=== PATIENT | female | born 1950 | race Caucasian/White ===

== ENCOUNTER 2016-08-08 05:36 | Inpatient (IN) ==
[2016-08-08] MEDS ORDERED: FAMOTIDINE 20 MG TABLET PO ONE (06:00)
[2016-08-08] MEDS ORDERED: LORazepam 1 MG TABLET PO ONE ×2 (06:00→06:29)
[2016-08-08] MEDS ORDERED: ceFAZolin 1,000 MG VIAL ONE (06:13)
[2016-08-08] MEDS ORDERED: VANCOMYCIN 1,000 MG VIAL ONE (06:13)
[2016-08-08] MEDS ORDERED: SODIUM CHLORIDE 0.9% 100 ML IV ONE ×2 (06:13→09:20)
--- NOTE | 2016-08-08 06:46 | EKG Report ---
Stationary ECG Study [facility] Test Date: 08/08/2016 6:46:43 AM Pat Name: AURA IRAHETA Department: Room: 612 Gender: F [place] Bone Roller: PATRICIA : 1950 Requested by: Ghulam Villasenor Order Number: [id number] Reading MD: THONY BLACKWELL Intervals [place] Rate: 96 P: 48 AR: 148 QRS: -7 QRSD: 85 T: 48 QT: 369 QTc: 422 Interpretive Statements SINUS RHYTHM LOW QRS VOLTAGE IN PRECORDIAL LEADS POSSIBLE ANTERIOR MYOCARDIAL INFARCTION, PROBABLY OLD Electronically Signed On 08-08-16 06:49:13 CDT by THONY BLACKWELL [email or web address]
[2016-08-08] MEDS: LACTATED RINGERS 1,000 ML IV SCH ×5 (07:00→20:21)
--- NOTE | 2016-08-08 07:24 | History and Physical Update ---
History and Physical Update - History and Physical H&P was reviewed, the patient examined and there: are no changes in the patients condition since last H&P was completed.
[2016-08-08] MEDS ORDERED: ROCURONIUM 100 MG/10 ML VIAL IV ONE (08:00)
[2016-08-08] MEDS ORDERED: PROPOFOL 200 MG/20 ML VIAL IV ONE (08:00)
[2016-08-08] MEDS ORDERED: PHENYLEPHRINE 1 MG/10 ML SYRINGE IV ONE (08:00)
[2016-08-08] MEDS ORDERED: VANCOMYCIN INJ 1,000 MG in SODIUM CHLORIDE 0.9% 250 ML IV ONE ×2 (08:00→17:10)
[2016-08-08] MEDS ORDERED: ONDANSETRON 4 MG/2 ML VIAL ONE (08:00)
[2016-08-08] MEDS ORDERED: LIDOCAINE 100 MG/5 ML SYRINGE ONE (08:00)
[2016-08-08] MEDS ORDERED: BACITRACIN OINT 0.9 GM PACK TOP ONE (08:33)
--- NOTE | 2016-08-08 09:08 | Operative Note ---
Date of procedure: 08/08/16 Procedure: DIAGNOSIS: Left knee primary osteoarthrosis PROCEDURE: Left total knee arthroplasty (cpt #05361) SURGEON: Katherin GRID OPERATOR: George ANESTHESIA: Spinal converted to general with a postoperative adductor canal block PROCEDURE and FINDINGS: After adequate was induced, the patient's knee was prepped and draped in the usual sterile fashion. The limb was exsanguinated with Esmarch. Tourniquet was inflated to 300 mmHg. A median parapatellar approach was made. Femur was cut using an intramedullary guide and a 4 in 1 cutting jig in 5 degrees of valgus. ACL and menisci were excised. Tibia was cut using intramedullary guide. Patella was cut using freehand technique. Components were trialed. Tibial fin was prepared. Components are cemented in place using Palacos cement and modern cementing techniques. Cement was removed. A 1/8 inch Hemovac drain was placed. The knee was well-balanced and full range of motion with central tracking patella. Deep layers closed with 0-0 Vicryl. Superficial layers were closed with 2-0 and 3-0 Vicryl. Skin was approximated with lonny. Bacitracin and a sterile dressing was applied. Patient was transferred to recovery. A postoperative adductor canal block is anticipated. COMPONENTS: The Mariah Persona system was used. 9 CR narrow femur, E natural tibia, 10 mm liner, 32 mm patella TOURNIQUET TIME: 41 minutes Surgeon / Physician: Johan Pandey Jr. Discharge Plan - Discharge Medications No Action Hydrocodone/Acetaminophen [Hydrocodon-Acetaminoph 7.5-325] 1 tablet PO DAILY PRN PRN Reason: Pain Aspirin EC Tab 81 mg PO DAILY Acetaminophen [Pain Relief] 325 mg PO Q4H Naproxen Sodium [Naproxen Sodium Tab] 220 mg PO Q12H PRN PRN Reason: Pain hydroCHLOROthiazide [Hydrochlorothiazide] 12.5 mg PO DAILY Fluoxetine HCl [Fluoxetine HCl] 40 mg PO DAILY Gabapentin [Gabapentin] 100 mg PO TID Copake-3/Dha/Epa/Fish Oil [Fish Oil 1,000 mg Softgel] 2 each PO DAILY Lisinopril [Lisinopril] 2.5 mg PO DAILY Cyanocobalamin (Vitamin B-12) [Vitamin B-12] 1,000 mcg PO DAILY Metoclopramide Tab [Reglan Tab] 5 mg PO ACHS #120 tablet Multivit-Min/FA/Lycopen/Lutein [Centrum Silver Tablet] 1 each PO DAILY Rosuvastatin Calcium [Rosuvastatin Calcium] 2.5 mg PO MOWEFR Pantoprazole Tab [Protonix Tab] 40 mg PO DAILY #30 tablet - Follow Up or Referral - Forms/Instructions
[2016-08-08] MEDS ORDERED: diphenhydrAMINE CAP 25 MG CAPSULE PO PRN (09:09)
[2016-08-08] MEDS ORDERED: ONDANSETRON 4 MG/2 ML VIAL IV PRN ×2 (09:09→09:25)
[2016-08-08] MEDS ORDERED: MORPHINE 2 MG/1 ML SYRINGE IV PRN (09:09)
[2016-08-08] MEDS ORDERED: oxyCODONE IR 5 MG TABLET PO PRN ×2 (09:09)
--- NOTE | 2016-08-08 09:13 | Anesthesia Post-Op ---
Anesthesia Post OP - Post Ansesthetic Evaluation Patient seen in post op: Yes Resp: within normal limits CV: within normal limits Mental: within normal limits Temp: within normal limits Gpmn-No-Cbwwqgdxu: within normal limits Nausea and Vomiting: within normal limits Pain: within normal limits
[2016-08-08] MEDS ORDERED: HYDROmorphone 2 MG/1 ML VIAL ONE (09:16)
[2016-08-08] MEDS ORDERED: MORPHINE 10 MG/10 ML VIAL ONE (09:19)
[2016-08-08] MEDS ORDERED: SEVOFLURANE 1 UNIT/15 MINUTE INH ONE (09:19)
[2016-08-08] MEDS: HYDROmorphone 2 MG/1 ML VIAL IV PRN ×4 (09:20→09:50)
[2016-08-08] MEDS ORDERED: fentaNYL 100 MCG/2 ML VIAL ONE (09:20)
[2016-08-08] MEDS ORDERED: MIDAZOLAM 2 MG/2 ML VIAL ONE (09:20)
[2016-08-08] MEDS ORDERED: TRANEXAMIC ACID 1,000 MG/10 ML VIAL IV ONE (09:22)
--- NOTE | 2016-08-08 12:25 | Pulmonology Progress Note ---
Pulmonary - PN: Subj Interval history: The patient is a 66-year-old white lady that came in today for left knee replacement. She is overweight and has degenerative arthritis and was having a lot of pain in her knees. She has a history of having hypertension and apparently uses CPAP for sleep apnea. She says she did well with the surgery and is breathing okay. She is having some discomfort but for the most part she has not had any problems. She had a negative cardiac evaluation prior to surgery. Overall it looks like she is doing reasonably well. Exam (Progress Note) - Constitutional Vitals: Period Temp Pulse Resp BP Sys/Mercado Pulse Ox Last 24 Hr 97.5 F-97.8 F 80-98 18-24 127-190/72-100 94-100 General appearance: no acute distress (She looks comfortable lying in bed), over weight - Head Head exam: Present: normal inspection, normocephalic - Eye Eye exam: Present: EOMI. Absent: scleral icterus Pupils: Present: TAMI - ENT ENT exam: Present: normal exam - Neck Neck exam: Present: normal inspection. Absent: lymphadenopathy, thyromegaly - Respiratory Respiratory exam: Present: clear to auscultation bilaterally. Absent: wheezes - Cardiovascular Cardiovascular exam: Present: regular rate and rhythm. Absent: gallop, systolic murmur - GI/Abdominal GI/Abdominal exam: Present: normal bowel sounds, soft. Absent: organomegaly, tenderness - Extremities Exam Extremities exam: Present: other (Left knee is splinted). Absent: calf tenderness, edema - Neurological Exam Neurological exam: Present: alert, oriented X3, CN II-XII intact - Psychiatric Psychiatric exam: Present: normal affect, normal mood - Skin Skin exam: Present: warm, dry Assessment and Plan (1) Osteoarthritis Status: Acute Assessment and plan: Patient has significant arthritis and was having knee pain. She comes in for knee replacement. Current Visit: Yes (2) Hypertension Status: Acute Assessment and plan: Patient has a history of high blood pressure and will continue observation. She will continue with her blood pressure medicines. Current Visit: Yes (3) Sleep apnea, obstructive Status: Acute Assessment and plan: The patient will continue with CPAP at night. Current Visit: Yes (4) Status post left knee replacement Status: Acute Assessment and plan: The patient came in and had her knee replacement today. She seems to be stable postop so far. She is having no respiratory distress. Overall she looks stable. Current Visit: Yes
[2016-08-08] MEDS: KETOROLAC 30 MG/1 ML VIAL IV SCH ×3 (12:42→20:31)
[2016-08-08] MEDS: METOCLOPRAMIDE 5 MG TABLET PO SCH ×3 (12:42→20:20)
[2016-08-08] MEDS: MORPHINE 2 MG/1 ML SYRINGE IV PRN ×2 (12:43→20:17)
[2016-08-08] MEDS: ceFAZolin 2,000 MG in PREMIX 1 EACH IV SCH ×2 (12:43→20:18)
--- NOTE | 2016-08-08 13:38 | XRay Report ---
Exam: XR knee 2V LT Date: 08/08/2016 9:10 AM Comparison: None Indication: Knee joint replacement Technique:[AP and lateral left knee] Findings: Recent satisfactory left total knee replacement. Postoperative findings are noted. Impression: Recent satisfactory left total knee replacement. No acute fracture or dislocation. PROCEDURE INTERPRETED AT [facility] DEPARTMENT OF RADIOLOGY Final Report Signed by: Dr. Mariama Bradford
[2016-08-08] MEDS: ACETAMINOPHEN 500 MG TABLET PO SCH ×2 (15:23→20:20)
[2016-08-08] MEDS: GABAPENTIN 100 MG CAPSULE PO SCH ×2 (15:23→20:21)
--- NOTE | 2016-08-08 18:21 | Orthopedic Progress Note ---
Orthopedics - Subjective Interval history: Comfortable. Left lower extremity dressing clean, dry and intact. Left lower extremity foot and ankle is neurovascularly unchanged. Plan: Continue with orders. Exam - Constitutional Vitals: Period Temp Pulse Resp BP Sys/Mrecado Pulse Ox Last 24 Hr 97.5 F-97.8 F 76-98 18-24 108-190/51-100 94-100
[2016-08-08] MEDS: DOCUSATE SODIUM 100 MG CAPSULE PO SCH (20:21)
[2016-08-09] MEDS: ACETAMINOPHEN 500 MG TABLET PO SCH ×2 (02:00→09:36)
[2016-08-09] MEDS: KETOROLAC 30 MG/1 ML VIAL IV SCH (04:07)
[2016-08-09] MEDS: FONDAPARINUX 2.5 MG/0.5 ML SYRINGE SUBCUT SCH (05:54)
[2016-08-09] MEDS: LACTATED RINGERS 1,000 ML IV SCH ×2 (06:02→06:11)
[2016-08-09 07:34] LABS: Basophils % 0.3 % (0.0-0.8); Eosinophils # 0.2 10*3/uL (0.0-0.87); Eosinophils % 2.5 % (0.00-10.9); Hematocrit 34.1 VOL% (35.7-47.0); Hemoglobin 11.7 GM/DL (12.0-16.0); Immature Granulocytes % 0.4 %; Immature Granulocytes Absolute 0.03 #; Lymphocytes % 14.1 % (21.3-54.2); Mean Corpuscular HGB Conc 34.3 GM/DL (32-36); Mean Corpuscular Hemoglobin 32 PG (27-34); Mean Corpuscular Volume 93.7 FL (87-102); Mean Platelet Volume 10.5 FL (9.6-12.0); Monocytes # 0.7 10*3/uL (0.11-0.8); Monocytes % 9.8 % (1.7-12.7); Neutrophils # 5.1 10*3/uL (1.4-7.4); Neutrophils % 72.9 % (38.7-73.9); Platelet Count 128 T/CUMM (130-400); Red Blood Count 3.64 MC/CUMM (3.8-5.5); Red Cell Distribution Width 15.4 % (9.3-17.3); White Blood Count 6.9 T/CUMM (4-12)
[2016-08-09 08:10] LABS: Calcium 8.5 MG/DL (8.5-10.1); Osmolality,Calculated 287.1 MOS/KG (273-304); Potassium 4.4 MMOL/L (3.5-5.1)
[2016-08-09] MEDS ORDERED: ROSUVASTATIN 10 MG TABLET PO SCH (09:00)
[2016-08-09] MEDS: FLUoxetine 20 MG CAPSULE PO SCH (09:43)
[2016-08-09] MEDS: GABAPENTIN 100 MG CAPSULE PO SCH ×3 (09:44→21:17)
[2016-08-09] MEDS: CYANOCOBALAMIN 500 MCG TABLET PO SCH (09:45)
[2016-08-09] MEDS: MULTIVITAMIN (CENTRUM) TABLET PO SCH (09:45)
[2016-08-09] MEDS: METOCLOPRAMIDE 5 MG TABLET PO SCH ×4 (09:46→21:17)
[2016-08-09] MEDS: PANTOPRAZOLE 40 MG TABLET PO SCH (09:46)
[2016-08-09] MEDS: hydroCHLOROthiazide 12.5 MG CAPSULE PO SCH (09:46)
[2016-08-09] MEDS: DOCUSATE SODIUM 100 MG CAPSULE PO SCH ×2 (09:46→21:17)
[2016-08-09] MEDS: LISINOPRIL 2.5 MG TABLET PO SCH (09:51)
--- NOTE | 2016-08-09 10:55 | Orthopedic Progress Note ---
Orthopedics - Subjective Interval history: Ms. Jacob is comfortable this morning. She has no complaints. Left knee is clean, dry and intact. Left lower extremities neurovascularly intact. Plan: Continue with physical therapy. Plan swing bed placement possibly in [place]. Discharge instructions were reviewed. Exam - Constitutional Vitals: Period Temp Pulse Resp BP Sys/Mercado Pulse Ox Last 24 Hr 97.6 F-98.7 F 71-89 18-20 104-149/51-77 91-100 Results - Labs CBC & BMP: 08/09/16 07:16 08/09/16 07:16
--- NOTE | 2016-08-09 10:58 | Discharge Summary ---
<Cuate Vazquez - Last Filed: 08/11/16 11:28> Hospital Course - Hospital Course Hospital Course: Mrs. Jacob was admitted after undergoing an uncomplicated right total knee replacement. She received perioperative DVT and antimicrobial prophylaxis. She received physical therapy. She was discharged to swing bed in stable condition. Cardiology and pulmonology were consulted to help manage her medical problems perioperatively. Diagnosis - Discharge Diagnosis (1) Status post left knee replacement Status: Acute Specialty Discharge - Follow Up or Referrals Follow up with: Johan Pandey Jr., MD [Physician] - (CALL TO SCHEDULE AN APPOINTMENT FOR 3-4 WEEKS) Discharge Plan - Discharge Data Disposition: Swing Bed, [facility], [facility] - Discharge Medications New Fondaparinux [Arixtra] 2.5 mg SUBCUT Q24H syringe HYDROcodone/ACETAMIN 10-325 [[place] 10-325] 2 tablet PO Q4H PRN tablet PRN Reason: Pain Moderate (4-7) Celecoxib [Celebrex] 200 mg PO DAILY capsule HYDROcodone/ACETAMIN 10-325 [[place] 10-325] 1 tablet PO Q4H PRN tablet PRN Reason: Pain Moderate (4-7) Continue Acetaminophen [Pain Relief] 325 mg PO Q4H PRN PRN Reason: Pain hydroCHLOROthiazide [Hydrochlorothiazide] 12.5 mg PO DAILY Fluoxetine HCl 40 mg PO DAILY Gabapentin 100 mg PO TID [place]oa-3/Dha/Epa/Fish Oil [Fish Oil 1,000 mg Softgel] 2 each PO DAILY Lisinopril 2.5 mg PO DAILY Cyanocobalamin (Vitamin B-12) [Vitamin B-12] 1,000 mcg PO DAILY Metoclopramide Tab [Reglan Tab] 5 mg PO ACHS #120 tablet Multivit-Min/FA/Lycopen/Lutein [Centrum Silver Tablet] 1 each PO DAILY Rosuvastatin Calcium 2.5 mg PO MOWEFR Pantoprazole Tab [Protonix Tab] 40 mg PO DAILY #30 tablet Discontinued Hydrocodone/Acetaminophen [Hydrocodon-Acetaminoph 7.5-325] 1 tablet PO DAILY PRN PRN Reason: Pain Aspirin EC Tab 81 mg PO DAILY Naproxen Sodium [Naproxen Sodium Tab] 220 mg PO Q12H PRN PRN Reason: Pain - Follow Up or Referral Follow Up: Johan Pandey Jr., MD [Physician] - (CALL TO SCHEDULE AN APPOINTMENT FOR 3-4 WEEKS) - Forms/Instructions Instructions: Total Knee Replacement (DC) Exam - Constitutional Vitals: Period Temp Pulse Resp BP Sys/Mercado Pulse Ox Last 24 Hr 97.3 F-98.4 F 71-84 16-20 114-163/59-79 91-96 Discharge Results Labs on day of discharge: Labs from last 24 hours 08/11/16 02:54 WBC 6.0 RBC 3.45 L Hgb 10.9 L Hct 32.3 L MCV 93.6 MCH 32 MCHC 33.7 RDW 15.0 Plt Count 123 L MPV 10.9 Neut % (Auto) 64.0 Lymph % (Auto) 20.1 L Weld % (Auto) 11.1 Eos % (Auto) 3.8 Baso % (Auto) 0.5 Neut # (Auto) 3.9 Lymph # (Auto) 1.2 L Weld # (Auto) 0.7 Eos # (Auto) 0.2 Baso # (Auto) 0.0 Immature Gran % 0.5 Nucleated RBC % 0.0 Immature Gran # 0.03 Nucleated RBCs # 0.00 DS: Provider Date of admission: 08/08/16 05:36 Primary care physician: Nitish Mann MD Attending physician on admission: Johan Pandey Jr., Consults: 08/08/16 09:09 Consult to Case Mgmt/Social Srvs [CONS] Routine Reason for Case Mgmt/Social Srvs: Rehab Home Health Equipment Consult Comment: Bedside Commode, CPM, Walker Consult to Occupational Therapy [CONS] Routine Reason for Occupational Therapy: Evaluate and Treat Consult Comment: ADL's Consult to Physical Therapy [CONS] Routine Reason for Physical Therapy: Evaluate and Treat Gait Training Start Therapy: Today 08/08/16 11:09 Consult to Pastoral Services [CONS] Routine Comment: Pastoral Screen: Request Environmental Studies Professor Visit Pastoral Screen Source of Request: Patient 08/08/16 11:10 Consult to Physician [CONS] Routine Comment: Consulting Provider: Brendan Vitale Consulting Provider Notified: Yes When should Consulting Provider be notified: Now Person Notified: timoteo mccarty Date Notified: 08/08/16 Time Notified: 11:10 08/08/16 11:11 Consult to Physician [CONS] Routine Comment: Consulting Provider: [employer],David Consulting Provider Notified: Yes When should Consulting Provider be notified: Now Person Notified: maritza mccarty Date Notified: 08/08/16 Time Notified: 11:20 Discharging clinician: Cuate Vazquez MD <Johan Pandey Jr. - Last Filed: 08/14/16 06:46> Discharge Plan - Discharge Data Condition at Discharge: Stable Discharge Diet: advance to your usual diet Hygiene: may shower Weight Bearing at Discharge: weight bear as tolerated Driving: not until seen by doctor - Forms/Instructions Additional Discharge Instructions: Daily dry dressing changes. Weightbearing as tolerated. CPM while at swing bed. Arrange walker and bedside commode for home use. Wear TOMMY hose for 1 month. Discontinue lonny and Steri-Strip wound on August 20, 2016. Follow-up appointment in 3-4 weeks. Stop Arixtra and Celebrex when discharged from swing bed. Restart aspirin 81 mg then.. DS: Provider Expected date of discharge: 08/11/16
--- NOTE | 2016-08-09 12:17 | Pathology Report from [facility] ---
[facility] ACCESSION # : [id number] PATIENT NAME : Cecil Jacob ORDERING DR : ALE CENTENO MD CLINICAL HX: LT knee osteoarthritis POST-OP DX: Same SPECIMEN INFO: LT knee bone & tissue GROSS DESCRIPTION: The specimen is received in formalin labeled CECIL JACOB consists of an aggregate of bone, soft tissue, and soft tissue measuring 13.0 x 6.0 cm. Large areas of subchondral ebunation seen. Dredgemaster tissue submitted in one cassette. DIAGNOSIS FOR CECIL JACOB: LEFT KNEE BONE & TISSUE, TOTAL REPLACEMENT: Osteoarthritis. COLLECTED DATE: 08/08/2016 [facility] REPORT DATE: 08/09/2016 ELECTRONICALLY SIGNED BY: Cheri Izaguirre M.D. 08/09/2016 - 11:43:35 [facility]ITAL[facility]hel[facility]
--- NOTE | 2016-08-09 13:04 | Cardiology Progress Note ---
Mike Elise April RN, am scribing for, and in the presence of, Matilda Estrada MD 13:03. Assessment and Plan (1) Hypertension Status: Chronic Current Visit: Yes (2) Sleep apnea, obstructive Status: Chronic Current Visit: Yes (3) S/P total knee arthroplasty Status: Acute Current Visit: Yes Qualifiers: Laterality: left Qualified Code(s): Z96.652 - Presence of left artificial knee joint Cardiology - PN: Subj Interval history: Application Security Engineer: Dr. Castaneda SUMMARY: Ms. Jacob is a 66 year old female who is routinely followed by Dr. Castaneda with a history of hypertension, depression, GERD, and sleep apnea. There is no mention since note that she is statin intolerant. She had a heart cath 12/21/[address] Castaneda with significant single-vessel coronary artery disease. She received cutting balloon of the diagonal of the LAD. She had mild disease in other vessels. Surgical history includes cholecystectomy, left hip surgery, hernia repair, and hysterectomy. Dr. Castaneda saw her in the office 07/24/2016 for a preoperative clearance for total knee replacement. She had nuclear stress testing in his office 07/29/2016 that was read as probably a normal perfusion study, suggestive of low risk for future cardiovascular events. Dr. Castaneda felt that she was at low risk for a cardiac event and recommended that she proceed with planned surgery. She was admitted 08/08/2016 for left total knee arthroplasty with Dr. Pandey. August 09, 2016: Ms. Jacob is day 1 status post left total knee arthroplasty by Dr. Pandey. Dressing of the left lower extremity. She states her left leg feels heavy. She denies any chest pain, shortness of breath, palpitations, or dizziness. Vital signs been stable throughout the night, blood pressure this morning 104/61. Assessment and plan: 1. Hypertension 2. Obstructive sleep apnea 3. Status post left total knee arthroplasty Exam (Progress Note) - Constitutional Vitals: Period Temp Pulse Resp BP Sys/Mercado Pulse Ox Last 24 Hr 97.5 F-98.7 F 71-96 18-24 104-190/51-100 91-100 Exam: General: Present: Appears Well, No Apparent Distress HEENT: Present: PERRL, Mucus Membranes Moist Neck: Present: Supple Neck, Midline Trachea, No Bruit Cardiac: Present: Reg Rate and Rhythm, No Murmur Lungs: Present: Normal Breath Sounds, Oxygen (Via nasal cannula), No Wheeze, Rales, Rhonchi Neuro: Absent: Resting Tremor, Essential Tremor Abdomen: Present: Soft, Active Bowel Sounds, Non-Tender. Absent: Distended Skin: Absent: Rash, Suspicious Lesions Musculoskeletal: Present: Erythematous Joints, Decreased Range of Motion, Pain in Joint Gait: Present: Poor Gait Extremities: Present: No Edema, Normal Upper Extr. Pulses, Normal Lower Extr. Pulses, Other (Dressing to left lower extremity dry and intact). Absent: Normal Gait Result/EKG - Labs CBC & BMP: 08/09/16 07:16 08/09/16 07:16 Lab Results: I have reviewed the past 24 hour labs Labs: Laboratory Results - last 24 hr 08/09/16 07:16 WBC 6.9 RBC 3.64 L Hgb 11.7 L Hct 34.1 L MCV 93.7 MCH 32 MCHC 34.3 RDW 15.4 Plt Count 128 L MPV 10.5 Neut % (Auto) 72.9 Lymph % (Auto) 14.1 L Jennings % (Auto) 9.8 Eos % (Auto) 2.5 Baso % (Auto) 0.3 Neut # (Auto) 5.1 Lymph # (Auto) 1.0 L Jennings # (Auto) 0.7 Eos # (Auto) 0.2 Baso # (Auto) 0.0 Immature Gran % 0.4 Nucleated RBC % 0.0 Immature Gran # 0.03 Nucleated RBCs # 0.00 Sean Elise Jennifer, MD, personally performed the services described in this documentation, ascribed by Araceli Mckeon RN in my presence, and it is both accurate and complete [id number] .
--- NOTE | 2016-08-09 13:04 | Cardiology Consult Note ---
Mike Elise April RN, am scribing for, and in the presence of, Matilda Estrada MD 13:04. Assessment and Plan - Time spent with patient Time spent with patient: Greater than 30 minutes (Assessment, planning, documentation, medication review) (1) Hypertension Status: Chronic Current Visit: Yes (2) Sleep apnea, obstructive Status: Chronic Current Visit: Yes (3) S/P total knee arthroplasty Status: Acute Current Visit: Yes Qualifiers: Laterality: left Qualified Code(s): Z96.652 - Presence of left artificial knee joint History of Present Illness - Data of Consult Patient: known to practice within the last 3 years Consult date: 08/08/16 Requesting Physician: Johan Pandey Jr. - Consult Narrative Reason for consult: Follow postoperatively History of present illness: Gem Technician: Dr. Castaneda Ms. Jacob is a 66 year old female who is routinely followed by Dr. Castaneda with a history of hypertension, depression, GERD, and sleep apnea. There is no mention since note that she is statin intolerant. She had a heart cath 2013 Dr. Castaneda with significant single-vessel coronary artery disease. She received cutting balloon of the diagonal of the LAD. She had mild disease in other vessels. Surgical history includes cholecystectomy, left hip surgery, hernia repair, and hysterectomy. Family history is positive for parents with stroke, mother with cancer, brother and father with CAD, and brother with diabetes. She reports she does not smoke stating she quit about [address] Castaneda saw her in the office 07/24/2016 for a preoperative clearance for total knee replacement. She had nuclear stress testing in his office 07/29/2016 that was read as probably a normal perfusion study, suggestive of low risk for future cardiovascular events. Dr. Castaneda that she was at low risk for a cardiac event and recommended that she proceed with planned surgery. She was admitted 08/08/2016 for left total knee arthroplasty with Dr. Pandey. She is seen postop. She is drowsy but will awaken easily. She denies any chest pain, shortness of breath, palpitations, or dizziness. Oxygen is in use via nasal cannula. Her blood pressures after surgery were elevated, but they are better now. Current blood pressure is 149/77. EKG done before this morning showed sinus rhythm with heart rate of 96. Assessment and plan: 1. Hypertension 2. Obstructive sleep apnea 3. Status post left total knee arthroplasty CC: Johan Pandey Jr., - Home Medications and Allergies Home Medications: Home Medications Medication Instructions Recorded Confirmed Type Acetaminophen [Pain Relief] 325 mg PO Q4H PRN 08/04/16 08/08/16 History Cyanocobalamin (Vitamin B-12) 1,000 mcg PO DAILY 08/04/16 08/08/16 History [Vitamin B-12] Fluoxetine HCl 40 mg PO DAILY 08/04/16 08/08/16 History Gabapentin 100 mg PO TID 08/04/16 08/08/16 History Lisinopril 2.5 mg PO DAILY 08/04/16 08/08/16 History Metoclopramide Tab [Reglan Tab] 5 mg PO ACHS #120 tablet 08/04/16 08/08/16 Rx Multivit-Min/FA/Lycopen/Lutein 1 each PO DAILY 08/04/16 08/08/16 History [Centrum Silver Tablet] [place]-3/Dha/Epa/Fish Oil [Fish Oil 2 each PO DAILY 08/04/16 08/08/16 History 1,000 mg Softgel] Pantoprazole Tab [Protonix Tab] 40 mg PO DAILY #30 tablet 08/04/16 08/08/16 Rx Rosuvastatin Calcium 2.5 mg PO MOWEFR 08/04/16 08/08/16 History hydroCHLOROthiazide 12.5 mg PO DAILY 08/04/16 08/08/16 History [Hydrochlorothiazide] Celecoxib [Celebrex] 200 mg PO DAILY capsule 08/09/16 Rx Fondaparinux [Arixtra] 2.5 mg SUBCUT Q24H syringe 08/09/16 Rx HYDROcodone/ACETAMIN 10-325 [[place] 1 tablet PO Q4H PRN tablet 08/09/16 Rx 10-325] HYDROcodone/ACETAMIN 10-325 [[place] 2 tablet PO Q4H PRN tablet 08/09/16 Rx 10-325] Allergies/Adverse Reactions: Allergies Allergy/AdvReac Type Severity Reaction Status Date / Time No Known Allergies Allergy Verified 08/08/16 06:34 - Constitutional Constitutional: Present: as per HPI - EENT Eyes: Present: requires corrective lense. Absent: blurry vision, loss of vision Ears: Present: decreased hearing. Absent: ear pain, tinnitus Nose, mouth and throat: Absent: epistaxis, headache(s), neck pain - Cardiovascular Cardiovascular: Absent: chest pain at rest, chest pain with activity, diaphoresis, dyspnea, dyspnea on exertion, edema, radiating jaw, neck or arm pain, lightheadedness, orthopnea, palpitations - Respiratory Respiratory: Present: cough. Absent: dyspnea, hemoptysis, dyspnea on exertion, wheezing - Gastrointestinal Gastrointestinal: Absent: abdominal pain, constipation, diarrhea, hematemesis, hematochezia, melena, nausea, vomiting - Genitourinary Genitourinary: Absent: dysuria, hematuria - Musculoskeletal Musculoskeletal: Present: back pain, limited range of motion, muscle weakness - Neurological Neurological: Present: abnormal gait. Absent: abnormal speech, confusion, dizziness, frequent falls, headache(s), syncope - Psychiatric Psychiatric: Absent: anxiety, confusion - Endocrine Endocrine: Present: fatigue. Absent: cold intolerance, heat intolerance - Hematologic/Lymphatic Hematologic/Lymphatic: Absent: easy bleeding, easy bruising Medical,Surgical,& Family Hx - Medical History Cardio: History of: Hypertension HEENT: History of: Ear Problem (SLIGHT WALES), Eye Problem (GLASSES) Endocrine: History of: Dyslipidemia Respiratory: History of: Obstructive Sleep Apnea (CPAP) Gastrointestinal: History of: GERD, GI Problems Musculoskeletal: History of: Back/Neck Problems (STENOSIS. DR MURPHY LAST INJECTION 07/2016.), Musculoskeletal Problems (OA) Reproductive: History of: Endometriosis - Surgical History Cardiac Surgeries: Sugical HX of: Cardiac Catheterization (12/2013) Abdominal Surgeries: Surgical HX of: Cholecystectomy, Colonoscopy, EGD, Hernia Repair Reproductive Surgeries: Surgical HX of;: Gynecologic Surgery, Hysterectomy ( COMPLETE) Orthopedic Surgeries: Surgical HX of;: Total Hip Replacement (LEFT) - Family History Family History: Reports;: Family Cancer (MOTHER), Family Diabetes (2 BROTHERS), Family Heart Disease (FATHER BYPASS X2, 2 BROTHERS), Family Hypertension (FATHER ?), Family Stroke (FATHER MOTHER) - Social History Smoking Status: Former smoker Have you smoked in the last 12 months: No Frequency of Alcohol Use: None Type of Drug Use: None Lives With:: Children Functional capacity: uses cane/walker Physical Examination Vital Signs Temp Pulse Resp BP Pulse Ox 97.8 F 98 H 18 127/79 95 08/08/16 06:39 08/08/16 06:39 08/08/16 06:39 08/08/16 06:39 08/08/16 06:39 General: Present: Appears Well, No Apparent Distress HEENT: Present: PERRL, Mucus Membranes Moist Neck: Present: Supple Neck, Midline Trachea, No Bruit Cardiac: Present: Reg Rate and Rhythm, No Murmur Lungs: Present: Normal Breath Sounds, Oxygen (Via nasal cannula), No Wheeze, Rales, Rhonchi Neuro: Absent: Resting Tremor, Essential Tremor Abdomen: Present: Soft, Active Bowel Sounds, Non-Tender. Absent: Distended Skin: Absent: Rash, Suspicious Lesions Musculoskeletal: Present: Erythematous Joints, Decreased Range of Motion, Pain in Joint Gait: Present: Poor Gait Extremities: Present: No Edema, Normal Upper Extr. Pulses, Normal Lower Extr. Pulses (Unable to assess left lower extremity pulse because of dressing), Other (Dressing to left lower extremity dry and intact). Absent: Normal Gait Result/EKG - Labs CBC & BMP: 08/09/16 07:16 08/09/16 07:16 Labs: Laboratory Results - last 24 hr 08/08/16 06:18 Blood Type O NEGATIVE Antibody Screen Negative - EKG EKG results: interpreted by me EKG shows: sinus rhythm I, Matilda Estrada MD, personally performed the services described in this documentation, ascribed by Araceli Mckeon RN in my presence, and it is both accurate and complete 304 .
--- NOTE | 2016-08-09 13:47 | Pulmonology Progress Note ---
Pulmonary - PN: Subj Interval history: The patient is a 66-year-old white lady that came in for left knee replacement. She is overweight and has degenerative arthritis and was having a lot of pain in her knees. She has a history of having hypertension and apparently uses CPAP for sleep apnea. She did get up some yesterday and move around. She says her knee is feeling better. She did not sleep that well but did okay last night. She is not having any trouble breathing. Exam (Progress Note) - Constitutional Vitals: Period Temp Pulse Resp BP Sys/Mercado Pulse Ox Last 24 Hr 97.6 F-98.7 F 71-80 18-20 104-137/61-72 91-98 Exam: General appearance: no acute distress (She looks comfortable and is moving around a little better.) - Head Head exam: Present: normal inspection, normocephalic - Eye Eye exam: Present: EOMI. Absent: scleral icterus Pupils: Present: TAMI - ENT ENT exam: Present: normal exam - Neck Neck exam: Present: normal inspection. Absent: lymphadenopathy, thyromegaly - Respiratory Respiratory exam: Present: clear to auscultation bilaterally. She is moving air well. absent: wheezes - Cardiovascular Cardiovascular exam: Present: regular rate and rhythm. Absent: gallop, systolic murmur - GI/Abdominal GI/Abdominal exam: Present: normal bowel sounds, soft. Absent: organomegaly, tenderness - Extremities Exam Extremities exam: Present: other (Left knee is splinted. She does not have any leg swelling or tenderness.). - Neurological Exam Neurological exam: Present: alert, oriented X3, CN II-XII intact - Psychiatric Psychiatric exam: Present: normal affect, normal mood - Skin Skin exam: Present: warm, dry Results - Labs CBC & BMP: 08/09/16 07:16 08/09/16 07:16 Assessment and Plan (1) Osteoarthritis Status: Acute Assessment and plan: Patient has significant arthritis and was having knee pain. She comes in for knee replacement. Current Visit: Yes (2) Hypertension Status: Chronic Assessment and plan: Patient has a history of high blood pressure and will continue observation. She will continue with her blood pressure medicines. She is medically stable. Current Visit: Yes (3) Sleep apnea, obstructive Status: Chronic Assessment and plan: The patient will continue with CPAP at night. Current Visit: Yes (4) Status post left knee replacement Status: Acute Assessment and plan: The patient came in and had her knee replacement. She is doing well postop and starting to do more physical therapy. She says her leg is feeling better and overall she is stable. Current Visit: Yes
[2016-08-09] MEDS: CELECOXIB 200 MG CAPSULE PO SCH (15:52)
[2016-08-09] MEDS: MORPHINE 2 MG/1 ML SYRINGE IV PRN (21:25)
[2016-08-10 01:20] LABS: Basophils % 0.3 % (0.0-0.8); Eosinophils # 0.3 10*3/uL (0.0-0.87); Eosinophils % 3.8 % (0.00-10.9); Hematocrit 33.1 VOL% (35.7-47.0); Hemoglobin 11.1 GM/DL (12.0-16.0); Immature Granulocytes % 0.4 %; Immature Granulocytes Absolute 0.03 #; Lymphocytes # 1.3 10*3/uL (1.4-4.0); Lymphocytes % 19.2 % (21.3-54.2); Mean Corpuscular HGB Conc 33.5 GM/DL (32-36); Mean Corpuscular Hemoglobin 31 PG (27-34); Mean Platelet Volume 10.3 FL (9.6-12.0); Monocytes # 0.8 10*3/uL (0.11-0.8); Monocytes % 11.5 % (1.7-12.7); Neutrophils # 4.4 10*3/uL (1.4-7.4); Neutrophils % 64.8 % (38.7-73.9); Platelet Count 132 T/CUMM (130-400); Red Blood Count 3.56 MC/CUMM (3.8-5.5); Red Cell Distribution Width 14.9 % (9.3-17.3); White Blood Count 6.8 T/CUMM (4-12)
[2016-08-10] MEDS: MORPHINE 2 MG/1 ML SYRINGE IV PRN (04:41)
[2016-08-10] MEDS: FONDAPARINUX 2.5 MG/0.5 ML SYRINGE SUBCUT SCH (06:55)
--- NOTE | 2016-08-10 06:58 | Orthopedic Progress Note ---
Assessment and Plan (1) Status post left knee replacement Status: Acute Assessment and plan: DVT Px Cont PT d/c to [facility] tomorrow Current Visit: Yes Orthopedics - Subjective Interval history: Pt c/o moderate pain in L knee. Ambulated in room with PT yesterday c/d/i, NVI Exam - Constitutional Vitals: Period Temp Pulse Resp BP Sys/Mercado Pulse Ox Last 24 Hr 97.6 F-99.4 F 73-90 16-20 104-166/59-87 92-96 Results - Labs CBC & BMP: 08/10/16 01:05 08/09/16 07:16
[2016-08-10] MEDS: MULTIVITAMIN (CENTRUM) TABLET PO SCH (08:21)
[2016-08-10] MEDS: PANTOPRAZOLE 40 MG TABLET PO SCH (08:22)
[2016-08-10] MEDS: CYANOCOBALAMIN 500 MCG TABLET PO SCH (08:22)
[2016-08-10] MEDS: METOCLOPRAMIDE 5 MG TABLET PO SCH ×4 (08:22→20:59)
[2016-08-10] MEDS: MAGNESIUM HYDROXIDE SUSP 30 ML UDCUP PO PRN (08:22)
[2016-08-10] MEDS: FLUoxetine 20 MG CAPSULE PO SCH (08:22)
[2016-08-10] MEDS: LISINOPRIL 2.5 MG TABLET PO SCH (08:23)
[2016-08-10] MEDS: DOCUSATE SODIUM 100 MG CAPSULE PO SCH ×2 (08:23→20:59)
[2016-08-10] MEDS: CELECOXIB 200 MG CAPSULE PO SCH (08:23)
[2016-08-10] MEDS: GABAPENTIN 100 MG CAPSULE PO SCH ×3 (08:23→20:59)
[2016-08-10] MEDS: hydroCHLOROthiazide 12.5 MG CAPSULE PO SCH (08:25)
--- NOTE | 2016-08-10 10:37 | Pulmonology Progress Note ---
Pulmonary - PN: Subj Interval history: This is a 66-year-old white female who had a left total knee replacement for degenerative joint disease. She has high blood pressure which is under control. She is a little overweight. She is doing well. She had no complaints and no new requests. This patient may be going to a swing bed on Friday. Physical exam Vital signs. See below Psychiatric. Oriented 3. Neurologic. Cranial nerves are intact long track motor functions intact Chest clear Heart. No gallop Abdomen. Nondistended nontender. Extremities. Nothing to suggest deep venous thrombophlebitis Neck. Symmetrical no meningismus. Face. Symmetrical no swelling of the lips or tongue. The remainder the physical exam is noncontributory. Plan. 1. Continue present therapy. 2. Watch blood pressure 3. Swing bed. Probably Friday. Exam (Progress Note) - Constitutional Vitals: Period Temp Pulse Resp BP Sys/Mercado Pulse Ox Last 24 Hr 97.3 F-99.4 F 73-90 16-20 130-166/59-87 91-96 Results - Labs CBC & BMP: 08/10/16 01:05 08/09/16 07:16
--- NOTE | 2016-08-10 14:02 | Cardiology Progress Note ---
Assessment and Plan (1) Hypertension Status: Chronic Current Visit: Yes (2) Sleep apnea, obstructive Status: Chronic Current Visit: Yes (3) S/P total knee arthroplasty Status: Acute Current Visit: Yes Qualifiers: Laterality: left Qualified Code(s): Z96.652 - Presence of left artificial knee joint Cardiology - PN: Subj Interval history: Evening was uneventful. She denies any chest pain, shortness of breath, palpitations. She is undergoing physical therapy with mechanically increased range of motion in her left knee. She is anticipating discharge to swing bed tomorrow. She has been stable from a cardiac standpoint, and we will sign off. Please reconsult if dynamic cardiac conditions arise. Exam (Progress Note) - Constitutional Vitals: Period Temp Pulse Resp BP Sys/Mercado Pulse Ox Last 24 Hr 97.3 F-99.4 F 73-90 16-20 130-166/59-87 91-96 Exam: General: Present: Appears Well, No Apparent Distress HEENT: Present: PERRL, Mucus Membranes Moist Neck: Present: Supple Neck, Midline Trachea, No Bruit Cardiac: Present: Reg Rate and Rhythm, No Murmur Lungs: Present: Normal Breath Sounds, Oxygen (Via nasal cannula), No Wheeze, Rales, Rhonchi Neuro: Absent: Resting Tremor, Essential Tremor Abdomen: Present: Soft, Active Bowel Sounds, Non-Tender. Absent: Distended Skin: Absent: Rash, Suspicious Lesions Musculoskeletal: Present: The left leg is positioned in the mechanical device for range of motion, there is only mild erythema around the joint, it is not erythematous or warm. There is no right lower extremity edema Gait: Present: Poor Gait Extremities: Present: No Edema, Normal Upper Extr. Pulses, Normal Lower Extr. Pulses, Other (Dressing to left lower extremity dry and intact). Absent: Normal Gait Result/EKG - Labs CBC & BMP: 08/10/16 01:05 08/09/16 07:16 Lab Results: I have reviewed the past 24 hour labs Labs: Laboratory Results - last 24 hr 08/10/16 01:05 WBC 6.8 RBC 3.56 L Hgb 11.1 L Hct 33.1 L MCV 93.0 MCH 31 MCHC 33.5 RDW 14.9 Plt Count 132 MPV 10.3 Neut % (Auto) 64.8 Lymph % (Auto) 19.2 L Leake % (Auto) 11.5 Eos % (Auto) 3.8 Baso % (Auto) 0.3 Neut # (Auto) 4.4 Lymph # (Auto) 1.3 L [place] # (Auto) 0.8 Eos # (Auto) 0.3 Baso # (Auto) 0.0 Immature Gran % 0.4 Nucleated RBC % 0.0 Immature Gran # 0.03 Nucleated RBCs # 0.00
[2016-08-11] MEDS: MAGNESIUM HYDROXIDE SUSP 30 ML UDCUP PO PRN (03:07)
[2016-08-11 03:36] LABS: Basophils % 0.5 % (0.0-0.8); Eosinophils # 0.2 10*3/uL (0.0-0.87); Eosinophils % 3.8 % (0.00-10.9); Hematocrit 32.3 VOL% (35.7-47.0); Hemoglobin 10.9 GM/DL (12.0-16.0); Immature Granulocytes % 0.5 %; Immature Granulocytes Absolute 0.03 #; Lymphocytes # 1.2 10*3/uL (1.4-4.0); Lymphocytes % 20.1 % (21.3-54.2); Mean Corpuscular HGB Conc 33.7 GM/DL (32-36); Mean Corpuscular Hemoglobin 32 PG (27-34); Mean Corpuscular Volume 93.6 FL (87-102); Mean Platelet Volume 10.9 FL (9.6-12.0); Monocytes # 0.7 10*3/uL (0.11-0.8); Monocytes % 11.1 % (1.7-12.7); Neutrophils # 3.9 10*3/uL (1.4-7.4); Platelet Count 123 T/CUMM (130-400); Red Blood Count 3.45 MC/CUMM (3.8-5.5)
[2016-08-11] MEDS: FONDAPARINUX 2.5 MG/0.5 ML SYRINGE SUBCUT SCH (06:02)
[2016-08-11] MEDS ORDERED: BISACODYL 10 MG SUPP RECTAL ONE (07:36)
[2016-08-11 07:41] VITALS: BP 144/71
[2016-08-11] MEDS: PANTOPRAZOLE 40 MG TABLET PO SCH (08:54)
[2016-08-11] MEDS: FLUoxetine 20 MG CAPSULE PO SCH (08:54)
[2016-08-11] MEDS: GABAPENTIN 100 MG CAPSULE PO SCH (08:54)
[2016-08-11] MEDS: METOCLOPRAMIDE 5 MG TABLET PO SCH ×2 (08:55→12:57)
[2016-08-11] MEDS: LISINOPRIL 2.5 MG TABLET PO SCH (08:55)
[2016-08-11] MEDS: DOCUSATE SODIUM 100 MG CAPSULE PO SCH (08:55)
[2016-08-11] MEDS: MULTIVITAMIN (CENTRUM) TABLET PO SCH (08:55)
[2016-08-11] MEDS: CYANOCOBALAMIN 500 MCG TABLET PO SCH (08:55)
[2016-08-11] MEDS: hydroCHLOROthiazide 12.5 MG CAPSULE PO SCH (08:56)
[2016-08-11] MEDS: CELECOXIB 200 MG CAPSULE PO SCH (08:56)
--- NOTE | 2016-08-11 11:29 | Orthopedic Progress Note ---
Assessment and Plan (1) Status post left knee replacement Status: Acute Assessment and plan: Discharge to swing bed today Current Visit: Yes Orthopedics - Subjective Interval history: No new complaints today. Dressings clean and dry Exam - Constitutional Vitals: Period Temp Pulse Resp BP Sys/Mercado Pulse Ox Last 24 Hr 97.3 F-98.4 F 71-84 16-20 114-163/59-79 91-96 Results - Labs CBC & BMP: 08/11/16 02:54 08/09/16 07:16 Specialty Discharge - Follow Up or Referrals Follow up with: Johan Pandey Jr., MD [Physician] - (CALL TO SCHEDULE AN APPOINTMENT FOR 3-4 WEEKS)
--- NOTE | 2016-08-11 13:39 | Pulmonology Progress Note ---
Pulmonary - PN: Subj Interval history: This is a 66-year-old white female who had a left total knee replacement for degenerative joint disease. She has high blood pressure which is under control. She is a little overweight. She is doing well. She had no complaints and no new requests. This patient may be going to a swing bed on Friday. 08/11/2016. This patient was seen along with a man and a woman family member. Man spent all of this time on his iPhone. Patient had an uneventful night. She says her breathing is fine. She laughingly said that now that she was getting around better than she had before surgery she would have to get a job. The other woman agreed with her. She has had no chest pain palpitations syncope near syncope or shortness of breath. Her bowel movements have been fine. Overall she has done extremely well. Today she is going to swing bed. I have previously discussed reflux and aspiration precautions with her. Patient says her blood pressure stays under good control unless she is up walking and then there is a tendency for to increase. She will make sure that this is watch closely peer Physical exam Vital signs. See below Psychiatric. Oriented 3. Neurologic. Cranial nerves are intact long track motor functions intact Chest clear Heart. No gallop Abdomen. Nondistended nontender. Extremities. Nothing to suggest deep venous thrombophlebitis Neck. Symmetrical no meningismus. Face. Symmetrical no swelling of the lips or tongue. The remainder the physical exam is noncontributory. Plan. 08/10/2069 1. Continue present therapy. 2. Watch blood pressure 3. Swing bed. Probably Friday. 08/11/2016 1. Agree with plans. 2. Patient will continue her present medicines with attention to her blood pressure. 3. I will sign off. Exam (Progress Note) - Constitutional Vitals: Period Temp Pulse Resp BP Sys/Mercado Pulse Ox Last 24 Hr 97.3 F-98.4 F 71-79 16-20 114-163/59-71 93-96 Results - Labs CBC & BMP: 08/11/16 02:54 08/09/16 07:16 Specialty Discharge - Follow Up or Referrals Follow up with: Johan Pandey Jr., MD [Physician] - (CALL TO SCHEDULE AN APPOINTMENT FOR 3-4 WEEKS)
== END 2016-08-11 12:42 | disposition swing bed (61) | DRG 470 ==
LOC: N.SDSINP 05:36 → N.3E 09:41
PROVIDERS: ADMIT Orthopaedic Surgery; ATTEND Orthopaedic Surgery